=== PATIENT | female | born 1980 | race Caucasian/White ===

== ENCOUNTER 2016-07-12 18:24 | Emergency (ER) | payer BC, OTHER ==
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
--- NOTE | 2016-07-12 21:02 | ED ORDER SUMMARY ---
..... Patient: MIESHA ROJAS OrderSheet [facility] VisitID: [id number] [address] [place] [address] 35y, F Registration Date/Time: 07/12/2016 ORDER SHEET Weight: 72.5 kg (stated) Allergies: Codeine GENERAL ORDERS: Crutches (20:55 07/12/2016 Enrique BARTLETT) (21:05 Ashanti) MEDICATION ORDERS: IV FLUIDS: ORDER SHEET NOTES: [Electronically signed by Yolanda Chase R.N. (:07/12/2016)] [Electronically signed by Wilma Raymundo MD (13:24 07/18/2016)] [Electronically locked/signed by Yolanda Chase R.N. (:07/12/2016)]
--- NOTE | 2016-07-12 21:02 | ED ORDER SUMMARY ---
..... Patient: MIESHA ROJAS OrderSheet [facility] VisitID: [id number] [address] [place] [address] 35y, F Registration Date/Time: 07/12/2016 ORDER SHEET Weight: 72.5 kg (stated) Allergies: Codeine GENERAL ORDERS: Crutches (20:55 07/12/2016 Enrique BARTLETT) (21:05 [place]) MEDICATION ORDERS: IV FLUIDS: ORDER SHEET NOTES: [Electronically signed by Yolanda Chase R.N. (:07/12/2016)] [Electronically signed by Wilma Raymundo MD (13:24 07/18/2016)] [Electronically locked/signed by Yolanda Chase R.N. (:07/12/2016)]
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
--- NOTE | 2016-07-18 13:24 | ED MED RECONCILIATION SUMMARY ---
Patient: MIESHA RJOAS Medication Reconciliation Report [facility] VisitID: [id number] [address] [place] [address] 35y, F Registration Date/Time: 07/12/2016 Weight: 72.5 kg Height/Length: 62 in. BMI: 29.3 ALLERGIES: Codeine The patient's Home Medications are listed below: CONTINUE TAKING THE FOLLOWING MEDICATIONS: Ibuprofen Oral PROzac Oral 10 mg, daily Tylenol Oral The source(s) of the original Home Medication information: Not obtained. The following Medications were given to the patient in the Emergency Department: None. The following Medications were prescribed to the patient: None.
--- NOTE | 2016-07-18 13:24 | ED MAR SUMMARY ---
..... Medication Administration Record [facility] [address] [place], [place] [id number] Patient: MIESHA ROJAS Visit ID: [id number] 35y, F Weight: 72.5 kg Height/Length: 62 in BMI: 29.3 ALLERGIES: Codeine
--- NOTE | 2016-07-18 13:24 | ED MAR SUMMARY ---
..... Medication Administration Record [facility] [address] [place], [place] [id number] Patient: MIESHA ROJAS Visit ID: [id number] 35y, F Weight: 72.5 kg Height/Length: 62 in BMI: 29.3 ALLERGIES: Codeine
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
--- NOTE | 2016-07-18 13:24 | ED MED RECONCILIATION SUMMARY ---
Patient: MIESHA ROJAS Medication Reconciliation Report [facility] VisitID: [id number] [address] [place] [address] 35y, F Registration Date/Time: 07/12/2016 Weight: 72.5 kg Height/Length: 62 in. BMI: 29.3 ALLERGIES: Codeine The patient's Home Medications are listed below: CONTINUE TAKING THE FOLLOWING MEDICATIONS: Ibuprofen Oral PROzac Oral 10 mg, daily Tylenol Oral The source(s) of the original Home Medication information: Not obtained. The following Medications were given to the patient in the Emergency Department: None. The following Medications were prescribed to the patient: None.
== END 2016-07-12 21:14 | disposition home or self-care (01) ==
LOC: ED SRH 18:24
DX: L55.0 Sunburn of first degree (principal); Z79.899 Other long term (current) drug therapy; Z88.5 Allergy status to narcotic agent